=== PATIENT | female | born 1975 | race Caucasian/White ===

== ENCOUNTER 2025-03-03 10:47 | Emergency (ER) | payer OTHER, SELFPAY ==
--- NOTE | ~2025-03-03 | CT_ITS ---
EXAMINATION: CT ANGIOGRAM HEAD AND NECK CLINICAL INFORMATION: Headache, vision changes, weakness, family history of intracranial masses. COMPARISON: None available. TECHNIQUE: Noncontrast axial imaging of the head was performed. This was followed by test bolus sequences and head and neck intravenous bolus administration 70 mL of Omnipaque 350. Helical imaging was performed in the axial plane from the aortic arch to the skull vertex. The data was processed at the sleep lab technologist's workstation for generation of MIP sequences. Angled MIPs and volume rendered reformatted images were also generated at an offline 3D workstation. Stenoses are assessed in accordance with NASCET criteria unless otherwise indicated. This CT examination was performed using dose optimization techniques as appropriate, variously including the following: *Automated exposure control *Adjustment of mA and/or kV according to patient size (this includes techniques or standardized protocols for targeted exams where dose is matched to indication/reason for exam; i.e. extremities or head) *Use of iterative reconstruction technique FINDINGS: NONCONTRAST HEAD CT: There is no evidence of intracranial hemorrhage or extra-axial fluid collection. There is no mass effect, or edema. No CT evidence of acute territorial infarct. Ventricles, sulci, and cisterns are normal in size and configuration for patient age. No hydrocephalus. No midline shift. No significant white matter abnormalities. Globes and orbital contents image normally. No extracranial soft tissue abnormalities. The paranasal sinuses, mastoid air cells, and tympanic cavities are normally aerated. No suspicious bony abnormalities. NECK CTA: -AORTIC ARCH: Normal in caliber. No significant atheromatous calcification. Three-vessel branching pattern. -GREAT VESSEL ORIGINS: Widely patent. No stenosis. -RIGHT COMMON CAROTID ARTERY: Normal in course and caliber to the level of the bifurcation. -CERVICAL RIGHT INTERNAL CAROTID ARTERY: Normal opacification without focal stenosis or occlusion. -LEFT COMMON CAROTID ARTERY: Normal in course and caliber to the level of the bifurcation. -CERVICAL LEFT INTERNAL CAROTID ARTERY: Normal opacification without focal stenosis or occlusion. -CERVICAL RIGHT VERTEBRAL ARTERY: Codominant. Normal in origin, course and caliber into the skull base. -CERVICAL LEFT VERTEBRAL ARTERY: Codominant. Normal in origin, course and caliber into the skull base. OTHER, SOFT TISSUES: -No lymphadenopathy or mass. No abnormal fluid collection or soft tissue swelling. -Normal thyroid. -Imaged superior mediastinal structures normal. -Imaged lung apices demonstrate mild scarring but are otherwise clear. CTA OF THE BRAIN: -INTRACRANIAL INTERNAL CAROTID ARTERIES: No focal stenosis or occlusion. Normal ophthalmic artery origins. -RIGHT ANTERIOR CEREBRAL ARTERY: Normal A1 segment. Normal arborization of the distal segments. -LEFT ANTERIOR CEREBRAL ARTERY: Normal A1 segment. Normal arborization of the distal segments. -ANTERIOR COMMUNICATING ARTERY: Normal. -RIGHT MIDDLE CEREBRAL ARTERY: Normal M1 segment of the MCA without focal stenosis or occlusion. Normal bifurcation. Normal arborization of the distal segments. -LEFT MIDDLE CEREBRAL ARTERY: Normal M1 segment of the MCA without focal stenosis or occlusion. Normal bifurcation. Normal arborization of the distal segments. -RIGHT VERTEBRAL ARTERY V4: Normal in course and caliber. Normal PICA branch. -LEFT VERTEBRAL ARTERY V4: Normal in course and caliber. Normal PICA branch. -BASILAR ARTERY: Normal without focal stenosis or occlusion. Normal appearance of the proximal superior cerebellar arteries. Normal basilar tip. -RIGHT POSTERIOR CEREBRAL ARTERY: Normal P1 segment. Normal opacification of the distal COMPOSING ROOM MACHINIST APPRENTICE segments. -LEFT POSTERIOR CEREBRAL ARTERY: Normal P1 segment. Normal opacification of the distal COMPOSING ROOM MACHINIST APPRENTICE segments. -POSTERIOR COMMUNICATING ARTERIES: Diminutive and not well seen. Normal opacification of the superior sagittal, straight, transverse, and sigmoid sinuses. No venous thrombosis. CT/CT angio head neck IMPRESSION: NON-CONTRAST HEAD CT: 1. No intracranial hemorrhage or mass effect. No CT evidence of acute territorial infarct. CTA NECK: 1. No evidence of significant stenosis, occlusion, dissection, or aneurysm of the major cervical arterial vasculature. CTA HEAD: 1. No evidence of significant stenosis, occlusion, dissection, or aneurysm of the major intracranial arterial vasculature. 2. The major cortical and dural venous sinuses are patent. Electronically signed by: Hayes Bowden MD 03/03/2025 03:09 PM [facility]
[2025-03-03 10:50] VITALS: BP 121/62; PULSE 80; RESP 20; TEMP 36.1; O2SAT 98; BMI 23.6
--- NOTE | 2025-03-03 10:51 | ED_ITS ---
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 Patient states that over the last several months she has had neck pain and tightness and feels as though her left side of her neck spasms up. She also states that she has had episodes in which her neck goes to the side, she feels as though her body tenses up, she grinds her teeth, and fist become clenched. She also reports that she feels as though she is moving slower throughout the day. She states that at times she feels as though her body is not communicating with her head. She endorses some headaches and fatigue. Patient reports that she also has been experiencing these ?blackouts? for 6-7 years. 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 She states that she previously saw a neurologist 5-6 years ago due to these ?blackouts?, and she was admitted for a 72 hour EEG however they sent her home the next day, with no findings. She has not followed up with neurologist since. Mother states that pt's father has parkinsons as well as had a tumor that was genetic in nature that needed to be removed. No other complaints or concerns at this time. MD complaint: Multiple complaints Related Data Allergies Allergy/AdvReac Type Severity Reaction Status Date / Time amoxicillin Allergy Itching Verified 03/03/25 10:57 Penicillins Allergy Itching Verified 03/03/25 10:57 Review of Systems 2 Review of Systems: Constitutional : No Fever, No Chills ENT/Mouth : No sore throat, No Rhinorrhea Eyes: No Eye Pain, No Swelling, No Redness Cardiovascular : No Chest Pain, No SOB Respiratory : No Cough, No Sputum Gastrointestinal : No Nausea, No Vomiting, No Diarrhea, No abdominal Pain Genitourinary : No Dysuria, No Hematuria Musculoskeletal : No joint pain, No Myalgias, No Joint Swelling Skin : No Skin Lesions Neuro : No Weakness, No Numbness, No Headache All other systems reviewed and are negative Yes all other systems are reviewed and are negative Constitutional: Constitutional: Reports as per [facility] Past Medical History Attestation statement: The following information was validated with the patient. Social History Social History Advance Directives: Yes Advance Directives Information Provided: No Advance Directives on File: No Do you have a plan to hurt others: No Plan Physical Exam ED Vital Signs: Vital Signs - 24 hr 03/03/25 10:50 03/03/25 11:22 03/03/25 12:20 Temperature 97.0 F Pulse Rate 80 69 68 Respiratory Rate 20 18 16 Blood Pressure 121/62 134/55 L 124/83 Pulse Oximetry 98 98 100 Oxygen Delivery Method Room Air Room Air Room Air 03/03/25 15:31 03/03/25 16:39 Temperature 98.9 F 98.9 F Pulse Rate 71 71 Respiratory Rate 18 18 Blood Pressure 124/69 124/69 Pulse Oximetry 99 99 Oxygen Delivery Method Room Air Room Air BMI result Body Mass Index 23.6 Const General: cooperative, comfortable and no acute distress Orientation/consciousness: patient oriented x3 Limitations: no limitations [facility] Head: Yes normal to inspection, Yes normocephalic and Yes atraumatic Ears: hearing grossly normal bilaterally General nose exam: Normal external nose present Face and sinus: Yes normal facial exam Mouth: Normal oral and palatal mucosa present, oropharynx normal and moist mucous membranes Throat: Yes posterior oropharynx normal Eyes General: appearance normal, both eyes and all related structures Eyelids: Yes eyelids normal Conjunctivae: conjunctivae normal Sclerae: sclerae normal Pupils: Equal, round and reactive pupils present EOM: EOMs intact bilaterally Neck Neck: Yes normal visual inspection, Yes full ROM and Yes no lymphadenopathy Lymphatic: no lymphadenopathy noted Chest Chest palpation & inspection: normal inspection of the chest Resp Effort & Inspection: normal respiratory effort and able to speak in complete sentences Auscultation: clear to auscultation bilaterally, no crackles, no rales, no rhonchi and no wheezes Cardio Rate: regular rate Rhythm: regular rhythm Heart sounds: S1 normal heart sound present and S2 normal heart sound present GI Inspection: Yes normal to inspection Skin General skin exam: no rashes or lesions noted Trauma: no lacerations or abrasions Wounds: no wounds Neuro General: patient oriented x3 and moves all extremities Cranial nerves: Yes CN's II-XII intact bilaterally, Yes Equal, round and reactive pupils present and Yes Midline tongue present Cognition (Neuro): normal cognition Gait exam (Neuro): Normal gait present Motor exam (neuro): 5/5 motor strength present throughout, Pronator motor function not present and no tremor noted Coordination: [id number] test normal Pupils: Normal pupillary reactivity/response: bilateral Extrem General: Yes normal to inspection Right upper extremity: normal to inspection Left upper extremity: normal to inspection Right lower extremity: normal to inspection Left lower extremity: normal to inspection NIH Stroke Scale Internal: Initial- Upon Arrival Level of Consciousness: Alert Level of Consciousness Questions: Answers both questions correctly Level of Consciousness Commands: Performs both tasks correctly Best Gaze: Normal Visual: No visual loss Facial Palsy: Normal Motor Arm (Right): No drift Motor Arm (Left): No drift Motor Leg (Right): No drift Motor Leg (Left): No drift Limb Ataxia: Absent Sensory: Normal Best Language: No aphasia Dysarthia: Normal Extinction and Inattention: No abnormality Score: 0 Course Course Course Narrative: This is a rapid medical exam performed by Arun Erickson NP: Additional HPI, ROS, PE not included below will be deferred to primary provider. Patient is a 50y/o F presenting to the ED with complaint of loss of control of her neck, right arm and leg shakiness, and body tensing up. States she is grinding her teeth, holding her hands together, heart rate goes up, has facial twitching all intermittently. States symptoms have been going on for months at least. Has seen neuro previously for episodes of blacking out. Saw PCP at [facility] on 02/24 and was given referral to neuro at patient's request. 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 On arrival, patient is alert and oriented, under no acute distress. Her vital signs are stable. She has an NIH stroke scale of 0. She is ambulatory with steady gait. She expresses multiple symptoms she has been experiencing over the last several months. She saw her PCP who referred her to neurology and is awaiting an appointment at this time. She previously was seen at [facility] 6-7 years ago for concerns however was d/c abruptly without completion of an EEG. She has not seen a neurologist since. Reports hx of epilepsy as a teen-early adult years, which she was previously on medication for but has not been on medications for many years. DDX including intracranial mass, anneurysm, electrolyte derangement, anxiety, amongst others. Will obtain CT/CTA of the head and neck, as well as labs to r/o any abnormalities. >>Overall workup today was reassuring, CT head/neck revealing no acute findings. EKG normal, labs WNL. Discussed with patient and mother at bedside that patient needs to see neurology for further workup/management as we are unable to perform EEGs/MRIs routinely. I stressed that patient should not be driving given her symptoms as this can be a danger to herself and others. She understands and will f/u with neurology. Pt stable for d/c. Differential Diagnosis Differential Diagnoses: The differential diagnosis associated with the presentation includes see above Admission/Observation Consideration of admission/observation: Escalation of care including admission/observation considered Lab Data MDM Lab Attestation statement: I reviewed the patient's lab results. Slight leukocystosis - nonspecific, no evidence of infection, likely reactive. CHEM WNL, TSH WNL. 03/03/25 12:51 03/03/25 12:50 Labs: Lab Results 03/03/25 03/03/25 Range/Units 12:50 12:51 WBC 11.4 H (4.8-10.8) X10*3/uL RBC 5.32 (4.20-5.50) X10*6/uL Hgb 15.3 (12.0-16.0) g/dl Hct 45.2 (37.0-47.0) % MCV 85.0 (80.0-98.0) fL MCH 28.8 (27.0-33.0) pg MCHC 33.8 (31.0-35.0) g/dl RDW 12.9 (11.0-16.0) % Plt Count 363 (160-400) X10*3/uL MPV 9.0 L (9.4-12.3) fL Immature Gran % (Auto) 0.4 (0.0-0.4) % Neut % (Auto) 68.5 (45-73) % Lymph % (Auto) 23.7 (20-40) % [place] % (Auto) 6.0 (2-11) % Eos % (Auto) 0.9 (0-4) % Baso % (Auto) 0.5 (0-2) % Lymph # (Auto) 2.7 (1.2-4.9) X10*3/uL [place] # (Auto) 0.7 (0.1-1.2) X10*3/uL Eos # (Auto) 0.1 (0.0-0.4) X10*3/uL Baso # (Auto) 0.1 (0.0-0.2) X10*3/uL Abs Immat Gran (auto) 0.04 H (0.00-0.03) X10*3/uL Absolute Neuts (auto) 7.8 (2.0-8.3) x10*3/uL Absolute Nucleated RBC 0.000 (0.0-0.012) X10*3/uL Nucleated RBC % (auto) 0.0 (0.0-0.2) /100WBC Sodium 136 (135-145) mmol/L Potassium 4.0 (3.3-5.1) mmol/L Chloride 101 (96-108) mmol/L Carbon Dioxide 27 (22-29) mmol/L Anion Gap 12 (12-20) BUN 10 (9-16) mg/dL Creatinine 0.68 (0.5-1.4) mg/dL Estim Creat Clear Calc 100.9 Estimated GFR > 60 Random Glucose 111 (60-115) mg/dL Calcium 9.5 (8.4-10.2) mg/dL Magnesium 2.3 (1.6-2.6) mg/dL Total Bilirubin 0.4 (0.0-1.0) mg/dL Direct Bilirubin 0.1 (0.0-0.5) mg/dL AST 29 (5-31) U/L ALT 31 (0-31) U/L Alkaline Phosphatase 65 (39-117) U/L Troponin I High Sens < 2.7 (<3.5-17.0) ng/L Total Protein 7.6 (6.5-8.0) g/dL Albumin 4.8 (3.5-5.0) g/dL TSH 0.82 (0.32-4.0) uIU/mL Independent Interpretation I performed an independent interpretation of an: EKG Interpretation: EKG NSR at a ventricular rate of 72bpm, QT/QTC 396/433. no STEMI Radiology Impression Discussion of test interpretation with radiology: I have reviewed the radiologist's reading. Radiologist Impression: FINDINGS: NONCONTRAST HEAD CT: There is no evidence of intracranial hemorrhage or extra-axial fluid collection. There is no mass effect, or edema. No CT evidence of acute territorial infarct. Ventricles, sulci, and cisterns are normal in size and configuration for patient age. No hydrocephalus. No midline shift. No significant white matter abnormalities. Globes and orbital contents image normally. No extracranial soft tissue abnormalities. The paranasal sinuses, mastoid air cells, and tympanic cavities are normally aerated. No suspicious bony abnormalities. NECK CTA: -AORTIC ARCH: Normal in caliber. No significant atheromatous calcification. Three-vessel branching pattern. -GREAT VESSEL ORIGINS: Widely patent. No stenosis. -RIGHT COMMON CAROTID ARTERY: Normal in course and caliber to the level of the bifurcation. -CERVICAL RIGHT INTERNAL CAROTID ARTERY: Normal opacification without focal stenosis or occlusion. -LEFT COMMON CAROTID ARTERY: Normal in course and caliber to the level of the bifurcation. -CERVICAL LEFT INTERNAL CAROTID ARTERY: Normal opacification without focal stenosis or occlusion. -CERVICAL RIGHT VERTEBRAL ARTERY: Codominant. Normal in origin, course and caliber into the skull base. -CERVICAL LEFT VERTEBRAL ARTERY: Codominant. Normal in origin, course and caliber into the skull base. OTHER, SOFT TISSUES: -No lymphadenopathy or mass. No abnormal fluid collection or soft tissue swelling. -Normal thyroid. -Imaged superior mediastinal structures normal. -Imaged lung apices demonstrate mild scarring but are otherwise clear. CTA OF THE BRAIN: -INTRACRANIAL INTERNAL CAROTID ARTERIES: No focal stenosis or occlusion. Normal ophthalmic artery origins. -RIGHT ANTERIOR CEREBRAL ARTERY: Normal A1 segment. Normal arborization of the distal segments. -LEFT ANTERIOR CEREBRAL ARTERY: Normal A1 segment. Normal arborization of the distal segments. -ANTERIOR COMMUNICATING ARTERY: Normal. -RIGHT MIDDLE CEREBRAL ARTERY: Normal M1 segment of the MCA without focal stenosis or occlusion. Normal bifurcation. Normal arborization of the distal segments. -LEFT MIDDLE CEREBRAL ARTERY: Normal M1 segment of the MCA without focal stenosis or occlusion. Normal bifurcation. Normal arborization of the distal segments. -RIGHT VERTEBRAL ARTERY V4: Normal in course and caliber. Normal PICA branch. -LEFT VERTEBRAL ARTERY V4: Normal in course and caliber. Normal PICA branch. -BASILAR ARTERY: Normal without focal stenosis or occlusion. Normal appearance of the proximal superior cerebellar arteries. Normal basilar tip. -RIGHT POSTERIOR CEREBRAL ARTERY: Normal P1 segment. Normal opacification of the distal [employer]ICAL [employer]KER [employer] segments. -LEFT POSTERIOR CEREBRAL ARTERY: Normal P1 segment. Normal opacification of the distal OPT[employer] BR[employer]KER HELPER segments. -POSTERIOR COMMUNICATING ARTERIES: Diminutive and not well seen. Normal opacification of the superior sagittal, straight, transverse, and sigmoid sinuses. No venous thrombosis. CT/CT angio head neck IMPRESSION: NON-CONTRAST HEAD CT: 1. No intracranial hemorrhage or mass effect. No CT evidence of acute territorial infarct. CTA NECK: 1. No evidence of significant stenosis, occlusion, dissection, or aneurysm of the major cervical arterial vasculature. CTA HEAD: 1. No evidence of significant stenosis, occlusion, dissection, or aneurysm of the major intracranial arterial vasculature. 2. The major cortical and dural venous sinuses are patent. Electronically signed by: Hayes Bowden MD 03/03/2025 03:09 PM [facility] Dictated By: Hayes Bowden MD External Record Review External record reviewed: Inpatient record, Office record, Outpatient record, Prior outpatient labs, Prior outpatient radiology, Primary care record and Outside ED record Discharge Plan Discharge Clinical Impression: Myalgia, Fatigue Patient Disposition: Home, Self-Care Instructions: Musculoskeletal Pain (ED), Fatigue (ED) Additional Instructions: You were seen in the emergency department and your workup today was reassuring. Your CT of your head and neck do not show any abnormalities. Please follow-up with [facility] [place], you may call to follow-up to see where you are in that follow-up process. Drink plenty of fluids get plenty of rest. Please avoid driving as it is unclear what is causing you to have the symptoms. If any new or worsening symptoms occur including but not limited to severe chest pain, shortness of breath, worsening episodes, please seek emergent care. Referrals: [facility]/Sleep [Provider Group] Stand Alone Forms: Work/School Release Interventions: ED Discharge Assessment Last Done: 03/03/25 16:39 Discharge Date/Time: 03/03/25 16:48 Print Language: Malay
[2025-03-03 11:22] VITALS: BP 134/55; PULSE 69; RESP 18; O2SAT 98
[2025-03-03 12:20] VITALS: BP 124/83; PULSE 68; RESP 16; O2SAT 100
--- NOTE | 2025-03-03 12:23 | ECG_ITS ---
Test Reason : dizziness Blood Pressure : */* mmHG Vent. Rate : 72 BPM Atrial Rate : 72 BPM P-R Int : 104 ms QRS Dur : 72 ms QT Int : 396 ms P-R-T Axes : * 36 57 degrees QTcB Int : 433 ms Sinus rhythm with short MO Otherwise normal ECG No previous ECGs available Referred By: Francia Ohara Electronically Signed By: Andrew Crain
[2025-03-03 12:55] LABS: MANUAL DIFF FLAG NO
[2025-03-03 13:04] LABS: Hematocrit 45.2 % (37.0-47.0); Hemoglobin 15.3 g/dl (12.0-16.0); Imm Gran Abs Auto 0.04 X10*3/uL (0.00-0.03); Imm Gran Pct Auto 0.4 % (0.0-0.4); Lymphocytes Absolute Auto 2.7 X10*3/uL (1.2-4.9); Mean Corpuscular HGB Conc 33.8 g/dl (31.0-35.0); Mean Corpuscular Hemoglobin 28.8 pg (27.0-33.0); Mean Corpuscular Volume 85.0 fL (80.0-98.0); NRBC Abs Auto 0.000 X10*3/uL (0.0-0.012); NRBC Pct Auto 0.0 /100WBC (0.0-0.2); Platelet Count 363 X10*3/uL (160-400); Red Blood Count 5.32 X10*6/uL (4.20-5.50); White Blood Count 11.4 X10*3/uL (4.8-10.8)
[2025-03-03 13:19] LABS: Troponin-I High Sensitivity < 2.7 ng/L (<3.5-17.0)
[2025-03-03 13:40] LABS: Alanine Aminotransferase 31 U/L (0-31); Albumin Level 4.8 g/dL (3.5-5.0); Alkaline Phosphatase 65 U/L (39-117); Anion Gap 12 (12-20); Aspartate Amino Transferase 29 U/L (5-31); Blood Urea Nitrogen 10 mg/dL (9-16); Calcium 9.5 mg/dL (8.4-10.2); Carbon Dioxide 27 mmol/L (22-29); Chloride 101 mmol/L (96-108); Creatinine Clr Calc Pharmacy 100.9; Estimated Glomerular Filt Rate > 60; Magnesium 2.3 mg/dL (1.6-2.6); Potassium 4.0 mmol/L (3.3-5.1); Sodium 136 mmol/L (135-145); Total Protein 7.6 g/dL (6.5-8.0)
[2025-03-03] MEDS: iohexoL 350 MG/ML 100 ML INFUS..BTL IV (14:12)
--- OUTSIDE RECORDS SUMMARY | 2025-03-03 15:14 | XMS_ITS | Clinical Summary ---
Author Organization [facility] Address [address] [place] [address] Care Team Providers Care Patient Liaison Name Role Phone Unavailable Primary Care Provider Unavailabl e Social History Tobacco Use Types Packs/Day Years Used Date Smoking Tobacco: Never Assessed Comments Unknown Sex and Gender Information Value Date Recorded Sex Assigned at Not on file Legal Sex Female 10:51 AM EDT Gender Identity Not on file Sexual Orientation Not on file Plan of Treatment Health Maintenance Due Date Last Done Comments Hepatitis C Virus Screening 1976 HIV Screening 01/23/1989 DTaP/Tdap/Td Vaccines (1 - Tdap) 01/23/1995 Hepatitis B Vaccines (1 of 3 - 19+ 3-dose series) 01/23/1995 COVID-19 Vaccine (2023-2 5 season) 2024 Pneumococcal Vaccine: Pediat jennifer (0-5 Years) and At-Risk Patients (6 to 49 Years) Aged Out No longer eligible b ased on patient's age to complete this topic
--- OUTSIDE RECORDS SUMMARY | 2025-03-03 15:14 | XMS_ITS | Clinical Summary ---
Author Organization [facility] Address [address] [place] [id number] Care Team Providers Care Phys Ther Name Role Phone Unavailable Primary Care Provider Unavailabl e Family History Medical History Relation Name Comments Diabetes Father Breast cancer Maternal Aunt Breast cancer Maternal Grandmother Relation Name Status Comments Father Maternal Aunt Maternal Grandmother Social History Tobacco Use Types Packs/Day Years Used Date Smoking Tobacco: Never Assessed Comments Unknown Sex and Gender Information Value Date Recorded Sex Assigned at Not on file Legal Sex Female 11:11 PM EST Gender Identity Not on file Sexual Orientation Not on file Plan of Treatment Health Maintenance Due Date Last Done Comments HIV screening 01/23/1989 Hepatitis C screening 01/23/1994 Tetanus adult (Td q 10,TDAP once) 1996 Cervical cancer screening 01/23/1997 Breast cancer screening 2016 Lipid disorder screening 2016 Colon cancer screening, Colonoscopy 01/23/2021 Diabetes screening 01/23/2021 Influenza vaccine 11/28/2024 Covid-19 vaccine series ( - 2024- season) 2024 RSV Immunization (1 - 1-dose 75+ series) 01/23/2051 Meningococcal B Vaccine Aged Out No l onger eligible based on patient's age to complete this topic Meningococcal Vaccine Aged Out No ifrah katja eligible based on patient's age to complete this topic Pneumococcal Vaccine (2 - 49 years) Aged Out No longer eligible based on patient's age to complete this topic
--- OUTSIDE RECORDS SUMMARY | 2025-03-03 15:14 | XMS_ITS | Encounter Summary ---
Author Organization [facility] Care Team Providers Care Jewel Flat Surfacer Name Role Phone Baylee Nicole MD Primary Care Pro vider Encounter Details Date Type Department Care Team ([facility] Contact Info) Description 09/23/2015 Abstract [facility] [address], [address] [place] [id number] Provider, Historical . Social History Tobacco Use Types Packs/Day Years Used Date Smoking Tobacco: Never Assessed Comments Unknown Sex and Gender Information Value Date Recorded Sex Assigned at Not on file Legal Sex Female 11:11 PM EST Gender Identity Not on file Sexual Orientation Not on file documented as of this encounter Plan of Treatment Not on file documented as of this encounter Visit Diagnoses Not on filedocumented in this encounter Care Teams Jewel Flat Surfacer Relationship Specialty Start Date End Date Baylee Nicole MD [address] [place] [address] [facility] [address] [place] [id number] PCP - General 09/16/15 09/05/18 documented as of this encounter
[2025-03-03 15:31] VITALS: BP 124/69; PULSE 71; RESP 18; TEMP 37.2; O2SAT 99
[2025-03-03 16:39] VITALS: BP 124/69; PULSE 71; RESP 18; TEMP 37.2; O2SAT 99
== END 2025-03-03 16:48 | disposition home or self-care (01) ==
PROVIDERS: Physician Assistant Medical; Emergency Provider Emergency Medicine; PCP Internal Medicine
DX: M79.10 Myalgia, unspecified site (principal); R53.83 Other fatigue; M54.2 Cervicalgia; Z88.0 Allergy status to penicillin
CPT/HCPCS: 36415; 70496; 70498; 80048; 80076; 83735; 84443; 84484; 85025; 93005; 99284; 99285; Q9967

== ENCOUNTER → 2025-03-03 12:23 | Outpatient (BNV) | payer OTHER, MEDICAID, SELFPAY | PROVIDERS: Emergency Provider Emergency Medicine; PCP Internal Medicine; Visit Provider Radiology Diagnostic Radiology | DX: R51.9 Headache, unspecified (principal); H53.8 Other visual disturbances; R53.1 Weakness | CPT/HCPCS: 70496; 70498 ==

== ENCOUNTER → 2025-03-03 12:23 | Outpatient (BNV) | payer OTHER, MEDICAID, SELFPAY | PROVIDERS: Emergency Provider Emergency Medicine; PCP Internal Medicine; Visit Provider Internal Medicine Cardiovascular Disease | DX: R55 Syncope and collapse (principal) | CPT/HCPCS: 93010 ==

== ENCOUNTER 2025-03-18 07:46 | Outpatient (AMB) | payer OTHER, MEDICAID, SELFPAY ==
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
[2025-03-18 07:52] VITALS: BP 142/90; PULSE 65; RESP 16; O2SAT 99; BMI 23.4
--- OUTSIDE RECORDS SUMMARY | 2025-03-18 15:18 | XMS_ITS | Encounter Summary ---
Author Organization [facility] Care Team Providers Care Meat Pickler Name Role Phone Baylee Nicole MD Primary Care Pro vider Encounter Details Date Type Department Care Team ([facility] Contact Info) Description 09/23/2015 Abstract [facility] [address], [address] [place] [id number] Provider, Historical . Social History Tobacco Use [...] on filedocumented in this encounter Care Teams Meat Pickler Relationship Specialty Start Date End Date Baylee Nicole MD [address] [place] [address] [facility] [address] [place] [id number] PCP - General 09/16/15 09/05/18 documented as of this encounter
--- OUTSIDE RECORDS SUMMARY | 2025-03-18 15:19 | XMS_ITS | Clinical Summary ---
Author Organization [facility] Address [address] [place] [address] Care Team Providers Care Foundry Metallurgist Name Role Phone Unavailable Primary Care Provider [...]
--- OUTSIDE RECORDS SUMMARY | 2025-03-18 15:19 | XMS_ITS | Data Portability ---
Author Organization [facility] Address [address] [place] [address] Assessment No assessment recorded. Plan of Treatment Reminders Order Date Submit Date Provider Last Modified By Organization Details Last Modified Time Details Appointments None record ed. Lab None record ed. Referral None record ed. Procedures None record ed. Surgeries None record ed. Imaging None record ed. Medication Orders None record ed. Patient TargetsNo targets recorded. Patient InstructionsNo instructions recorded. Reason for Referral None Reported. Medical Equipment None Reported. Medications Name Sig Start Date Stop Date Status Note LastModified by Organization Details LastModified Time ibuprofen 800 mg tablet TAKE 1 TABLET BY MOUTH 3 TIMES A DAY active Not Available Not Available No t Available fluconazole 150 mg tablet TAKE 1 TABLET BY MOUTH TODAY, REPEAT IN 3 DAYS NEEDED active Not Available Not Available No t Available Adderall XR 30 mg capsule,extend ed release TAKE 1 CAPSULE BY MOUTH EVERY MORNING active Not Available Not Available No t Available oseltamivir 75 mg capsule TAKE 1 CAPSULE BY MOUTH TWICE A DAY FOR 5 DAYS active Not Available Not Available No t Available levofloxacin 500 mg tablet TAKE 1 TABLET BY MOUTH EVERY 24 HOURS X10 DAYS active Not Available Not Available No t Available fluoxetine 20 mg capsule TAKE 1 CAPSULE BY MOUTH EVERY DAY active Not Available Not Available No t Available Vitals None Recorded Social History None recorded. Functional Status None recorded. Mental Status None recorded. Family History Nothing Reported. Medical History No medical history recorded. Gynecological HistoryNo gynecological history recorded. Obstetrics History GPAL:G 0 P 0 0 0 0 Past Encounters Encounter ID Performer Location Encounter Start Date Encounter Closed Date Diagnosis/Indication Diagnosis SNOMED-CT Code Diagnosis ICD10 Code Diagnosis IMO Codes Diagnosis Note [id number] [facility] [address] [place] [address] 10/25/2020 18:48:51 10/25/2020 19:41:58 [id number] [address] [address] [address] [facility] [place] [address] 03/05/2017 15:30:07 03/05/2017 16:47:54 [id number] [address] [facility] [place] [address] 10/01/2016 16:32:00 10/01/2016 18:06:08 [id number] [address] [facility] [address] [facility] [place] [address] 01/08/2016 17:42:52 01/08/2016 19:09:19 [id number] [address] [facility] [place] [address] 09/10/2016 08:33:25 09/10/2016 09:07:17 Health Concerns Section Related Observation LastModified by Organization Detai ls LastModified Time None Recorded Concern Status LastModified by Organization Details LastModified Time None Recorded Advance Directives Directive None Recorded Payers Insurance Date Sequence Insurance Name Policy Number Policy Gramajo Covered Member ID Gramajo Member ID Guarantor Name 05/04/2022 1 [facility] [id number] Alberta Dodge [id number] Alberta Dodge OBGyn Episode No OBEpisode recorded.
--- OUTSIDE RECORDS SUMMARY | 2025-03-18 15:19 | XMS_ITS | Clinical Summary ---
Author Organization [facility] Address [address] [place] [id number] Care Team Providers Care Stock Selector Name Role Phone Unavailable Primary Care Provider [...]
== END 2025-03-18 08:45 | disposition home or self-care (01) ==
PROVIDERS: PCP Internal Medicine; Visit Provider Nurse Practitioner
DX: R53.83 Other fatigue (principal); R40.4 Transient alteration of awareness
CPT/HCPCS: 99204

== ENCOUNTER 2025-04-09 08:21 | Outpatient (REF) | payer OTHER, SELFPAY | END 2025-04-09 08:22 | disposition home or self-care (01) | LOC: HO.NEURO 08:21 | PROVIDERS: PCP Internal Medicine; Visit Provider Nurse Practitioner | DX: R40.4 Transient alteration of awareness (principal); R53.83 Other fatigue | CPT/HCPCS: 95700; 95705; 95708 ==

== ENCOUNTER → 2025-04-09 08:26 | Outpatient (BNV) | payer OTHER, SELFPAY | PROVIDERS: PCP Internal Medicine; Visit Provider Psychiatry & Neurology Neurology | DX: R40.0 Somnolence (principal) | CPT/HCPCS: 95719 ==

== ENCOUNTER 2025-04-28 08:06 | Outpatient (AMB) | payer OTHER, SELFPAY ==
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
[2025-04-28 08:16] VITALS: BP 126/68; PULSE 63; RESP 16; O2SAT 98; BMI 22.7
--- OUTSIDE RECORDS SUMMARY | 2025-04-28 09:31 | XMS_ITS | Clinical Summary ---
Author Organization [facility] Address [address] [place] [address] Care Team Providers Care Social Organization Professor Name Role Phone Unavailable Primary Care Provider [...] - 19+ 3-dose series) 01/23/1995 COVID-19 Vaccine (2024-2 6 season) 2024 Pneumococcal Vaccine: Pediat jennifer (0-5 Years) and At-Risk Patients (6 to 49 Years) Aged Out No longer eligible b ased on patient's age to complete this topic
--- OUTSIDE RECORDS SUMMARY | 2025-04-28 09:31 | XMS_ITS | Clinical Summary ---
Author Organization [facility] Address [address] [place] [id number] Care Team Providers Care Classifier Operator Name Role Phone Unavailable Primary Care Provider [...] Influenza vaccine 11/28/2024 Covid-19 vaccine series ( season) 2024 Meningococcal B Vaccine Aged Out No l onger eligible based on patient's age to complete this topic Meningococcal Vaccine Aged Out No ifrah katja eligible based on patient's age to complete this topic Pneumococcal Vaccine (2 - 49 years) Aged Out No longer eligible based on patient's age to complete this topic
--- OUTSIDE RECORDS SUMMARY | 2025-04-28 09:31 | XMS_ITS | Encounter Summary ---
Author Organization [facility] Care Team Providers Care Marzipan Maker Name Role Phone Baylee Nicole MD Primary Care Pro vider Encounter Details Date Type Department Care Team ([facility] Contact Info) Description 09/23/2015 Abstract [facility] [address], [address] [place] [id number] Provider, Historical . Social History Tobacco Use [...] on filedocumented in this encounter Care Teams Marzipan Maker Relationship Specialty Start Date End Date Baylee Nicole MD [address] [place] [address] [facility] [address] [place] [id number] PCP - General 09/16/15 09/05/18 documented as of this encounter
== END 2025-04-28 08:51 | disposition home or self-care (01) ==
PROVIDERS: PCP Internal Medicine; Visit Provider Nurse Practitioner
DX: R53.83 Other fatigue (principal); R40.4 Transient alteration of awareness
CPT/HCPCS: 99214

== ENCOUNTER → 2025-04-28 08:06 | Outpatient (BNVA) | payer OTHER, SELFPAY | PROVIDERS: PCP Internal Medicine; Visit Provider Nurse Practitioner | DX: R40.4 Transient alteration of awareness (principal); R53.83 Other fatigue | CPT/HCPCS: 99212 ==